=== PATIENT | female | born 1985 | race Caucasian/White ===

== ENCOUNTER 2017-08-04 22:29 | Emergency (ER) | payer OTHER ==
--- NOTE | 2017-08-05 01:26 | ED ---
Lower Extremity - HPI Summary HPI Summary: 32F presents with left leg swelling for couple days. She denies any injury. She denies any fever. She denies any spreading redness. She states that her calf fells tight. She states she has been having increasing pain when she walks. She denies any numbness or tingling. No previous history of blood clots. 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 She denies any recent surgery or travel. She denies any family history of blood clots. She denies any chest pain or SOB. - History of Current Complaint Chief Complaint: EDExtremityLower Stated Complaint: PAIN AND SWELLING LT LEG Time Seen by Provider: 08/05/17 01:09 Pain Intensity: 7 - Allergies/Home Medications Allergies/Adverse Reactions: Allergies Allergy/AdvReac Type Severity Reaction Status Date / Time No Known Allergies Allergy Verified 08/04/17 22:41 PMH/Surg Hx/FS Hx/Imm Hx Endocrine/Hematology History: Denies: Hx Anticoagulant Therapy Cardiovascular History: Denies: Hx Hypertension Infectious Disease History: No Infectious Disease History: Denies: Traveled Outside the [place] in Last 30 Days - Family History Known Family History: Negative: Blood Disorder - Social History Alcohol Use: Occasionally Substance Use Type: Reports: None Smoking Status (MU): Never Smoked Tobacco Review of Systems Negative: Fever Negative: Chest Pain Negative: Shortness Of Breath Positive: Edema - left calf pain All Other Systems Reviewed And Are Negative: Yes Physical Exam Triage Information Reviewed: Yes Vital Signs On Initial Exam: Initial Vitals Temp Pulse Resp BP Pulse Ox 98.7 F 83 16 103/74 100 08/04/17 22:38 08/04/17 22:38 08/04/17 22:38 08/04/17 22:38 08/04/17 22:38 Vital Signs Reviewed: Yes Appearance: Positive: Well-Appearing Skin: Positive: Warm, Dry Head/Face: Positive: Normal Head/Face Inspection Eyes: Positive: Normal, Conjunctiva Clear Respiratory/Lung Sounds: Positive: Clear to Auscultation, Breath Sounds Present Cardiovascular: Positive: Normal, RRR Musculoskeletal: Positive: Strength/ROM Intact - left calf, Yolie Sign Left, Other - good pulses, tenderness over medial aspect of left calf Neurological: Positive: Normal Psychiatric: Positive: Normal Diagnostics - Vital Signs Vital Signs Temp Pulse Resp BP Pulse Ox 08/04/17 22:38 98.7 F 83 16 103/74 100 - Laboratory Result Diagrams: 08/05/17 01:48 08/05/17 01:48 Lab Statement: Any lab studies that have been ordered have been reviewed, and results considered in the medical decision making process. - Ultrasound No standard instances Ultrasound Interpretation: Positive (See Comments) - positive for a DVT in popliteal vein Ultrasound Interpretation Completed By: Radiologist Lower Extremity Course/Dx - Course Course Of Treatment: 32F presents with left leg swelling for couple days. She denies any injury. She denies any fever. She denies any spreading redness. She states that her calf fells tight. She states she has been having increasing pain when she walks. She denies any numbness or tingling. No previous history of blood clots. 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 She denies any recent surgery or travel. She denies any family history of blood clots. She denies any chest pain or SOB. on exam pos yolie test. tenderness over medial aspect of left calf, good pulses. u/s shows popliteal DVT. discussed options for blood thinner and risks and benefits and patient wants xarelto. discussed that needs to follow up with izabela for continued care and stop ocp. patient understand and agrees with plan. - Diagnoses Differential Diagnosis/HQI/PQRI: Positive: DVT, Phlebitis, Strain Provider Diagnoses: Deep venous thrombosis Discharge - Discharge Plan Condition: Good Disposition: HOME Prescriptions: Rivaroxaban TAB(*) [Xarelto 15 mg(*)] 15 mg PO BID #41 tab Patient Education Materials: Deep Venous Thrombosis (ED) Referrals: [facility] - Izabela GALIDNO [Primary Care Provider] - Additional Instructions: Take xarelto twice a day for 21 days then once a day Take with food Avoid Aspirin or ibuprofen, use Tylenol for pain Follow up with primary care physician for continued care as will need new script as is different dose for the once a day dosing after the 21 days Return to ED if develop any chest pain or SOB any new or worsening symptoms
[2017-08-05 01:59] LABS: Hematocrit 35 % (35-47); Hemoglobin 11.3 g/dl (12.0-16.0); Mean Corpuscular HGB Conc 32 g/dl (31-36); Mean Corpuscular Hemoglobin 28 pg (27-31); Mean Corpuscular Volume 87 fL (80-97); Mean Platelet Volume 9 um3 (7.4-10.4); Red Blood Count 4.01 10^6/ul (4.0-5.4); Red Cell Distribution Width 14 % (10.5-15); White Blood Count 8.9 10^3/ul (3.5-10.8)
[2017-08-05] MEDS ORDERED: Rivaroxaban TAB(*) 15 MG PO ONE (02:13)
[2017-08-05 02:15] LABS: ALT 11 U/L (7-52); AST 15 U/L (13-39); Albumin 3.9 g/dL (3.2-5.2); Alkaline Phosphatase 78 U/L (34-104); Anion Gap 6 mmol/L (2-11); Blood Urea Nitrogen 13 mg/dL (6-24); CO2 Carbon Dioxide 25 mmol/L (22-32); Calcium 9.3 mg/dL (8.6-10.3); Chloride 105 mmol/L (101-111); EGFR African American 144.4 (>60); EGFR Non-African American 112.3 (>60); Globulin 2.8 g/dL (2-4); Glucose 90 mg/dL (70-100); Potassium 3.9 mmol/L (3.5-5.0); Sodium 136 mmol/L (133-145); Total Protein 6.7 g/dL (6.4-8.9)
[2017-08-05 02:56] VITALS: BP 116/51
--- NOTE | 2017-08-05 08:19 | RAD ---
INDICATION: LEFT calf pain and edema. Assess for DVT. COMPARISON: No relevant prior exams available on the [facility] [place] [facility] [place]. TECHNIQUE: Farnsworth scale, color Doppler, and spectral analysis of the deep veins of the LEFT lower extremity. Vessel compression, phasicity, and augmentation assessed. REPORT: The LEFT common femoral, great saphenous, profunda femoral, and femoral veins are patent. There is near occlusive predominant hypoechoic thrombus at the popliteal vein and occlusive thrombus at the paired peroneal calf veins. The posterior tibial calf veins are patent. Patency of the RIGHT common femoral vein documented. IMPRESSION: Near occlusive LEFT popliteal vein and occlusive compared peroneal vein deep venous thrombosis. Results called to the ER provider at 0132 hours by [facility].
== END 2017-08-05 02:54 | disposition home or self-care (01) ==
LOC: ED 22:29
DX: I82.432 Acute embolism and thrombosis of left popliteal vein (principal)
CPT/HCPCS: 36415; 80053; 84702; 85025; 85610; 85730; 99282